=== PATIENT | male | born 1980 | race Caucasian/White ===

== ENCOUNTER 2019-05-21 23:40 | Emergency (ER) | payer SELFPAY ==
[~2019-05-21] VITALS: Ht 177.8 cm; Wt 72.6 kg
[2019-05-22] MEDS ORDERED: MORPHINE SULFATE INJ 4 MG/ML INJ 1ML ONE (00:14)
[2019-05-22] MEDS ORDERED: PROMETHAZINE HCL (IM) 25 MG/ML VIAL ONE (00:14)
[2019-05-22] MEDS ORDERED: MORPHINE SULFATE INJ 4 MG/ML INJ 1ML IM ONE (00:15)
[2019-05-22] MEDS ORDERED: PROMETHAZINE HCL (IM) 25 MG/ML VIAL IM ONE (00:15)
--- NOTE | 2019-05-22 00:20 | NUR ---
pt refuses to have im injectiosns in his butt. pt states he always get them in his arm.
--- NOTE | 2019-05-22 01:13 | NUR ---
pt signed a refusal of treatment form, risk factors given to patient and he verbalized understanding.
== END 2019-05-22 00:50 | disposition home or self-care (01) ==
LOC: FSED 23:40
DX: R10.33 Periumbilical pain (principal)
CPT/HCPCS: 96372; 99282; J2270; J2550